=== PATIENT | male | born 1950 | race Caucasian/White ===

== ENCOUNTER 2023-07-30 02:56 | Emergency (ER) | payer OTHER ==
[~2023-07-30] VITALS: Ht 175.3 cm; Wt 86.2 kg
[2023-07-30 04:09] LABS: BASOPHILS ABSOLUTE AUTO 0.07 K/mm3 (0.00-0.23); BASOPHILS PERCENT AUTO 1 % (0-2); EOSINOPHILS ABSOLUTE AUTO 0.87 K/mm3 (0.00-0.68); EOSINOPHILS PERCENT AUTO 12 % (0-6); Hematocrit 42.3 % (37.0-53.0); Hemoglobin 14.2 g/dL (13.5-17.5); IMMATURE GRAN ABSOLUTE AUTO 0.03 K/mm3 (0.00-0.10); IMMATURE GRAN PERCENT AUTO 0 % (0-1); LYMPHOCYTES ABSOLUTE AUTO 1.55 K/mm3 (0.84-5.20); LYMPHOCYTES PERCENT AUTO 21 % (21-46); MONOCYTES ABSOLUTE AUTO 0.91 K/mm3 (0.16-1.47); MONOCYTES PERCENT AUTO 12 % (4-13); Mean Corpuscular HGB 31.2 pg (26.0-34.0); Mean Corpuscular HGB Conc 33.6 g/dL (31.5-36.5); Mean Corpuscular Volume 93 fL (80-100); NEUTROPHILS PERCENT AUTO 54 % (41-73); Platelet Count 174 K/mm3 (150-400); RDW Coefficient Variation 12.7 % (11.7-14.2); RDW Standard Deviation 43.6 fL (35.1-46.3); Red Blood Cell Count 4.55 M/mm3 (4.30-5.90); White Blood Cell Count 7.43 K/mm3 (4.00-11.30)
[2023-07-30] MEDS ORDERED: ATOR40TA PO (04:29)
[2023-07-30] MEDS ORDERED: LISI20 PO (04:29)
[2023-07-30] MEDS ORDERED: FINA5 PO (04:29)
[2023-07-30] MEDS ORDERED: ASPIR 8181 M1 PO (04:29)
[2023-07-30] MEDS ORDERED: TAMS.4ER PO (04:30)
[2023-07-30 04:35] LABS: Albumin, Blood 3.7 g/dL (3.4-5.0); Albumin/Globulin Ratio 1.1 (0.8-1.8); Bilirubin, Total 0.5 mg/dL (0.1-1.0); Bun/Creatinine Ratio 30.8 (12.0-20.0); Calcium, Blood 9.3 mg/dL (8.5-10.1); Creatinine, Blood 1.07 mg/dL (0.60-1.20); Globulin, Blood 3.5 g/dL (2.2-4.0); Magnesium, Blood 2.2 mg/dL (1.6-2.4); Phosphorus, Blood 3.4 mg/dL (2.5-4.9); Potassium, Blood 4.2 mmol/L (3.5-5.5); Total Protein, Blood 7.2 g/dL (6.4-8.2)
[2023-07-30 08:02] VITALS: BP 131/85
== END 2023-07-30 08:00 | disposition home or self-care (01) ==
LOC: ER 02:56
PROVIDERS: Emergency Medicine
DX: R07.89 Other chest pain (principal); Z79.899 Other long term (current) drug therapy; Z79.82 Long term (current) use of aspirin; I10 Essential (primary) hypertension; Z91.030 Bee allergy status
CPT/HCPCS: 71046; 71275; 80053; 83605; 83690; 83735; 84100; 84484; 85025; 85379; 93005; 93010; 96374; 99284-25; J3010; Q9967